=== PATIENT | female | born 1945 | race Caucasian/White ===

== ENCOUNTER → 2025-02-25 14:57 | Outpatient (BNVA) | payer MEDICARE, SELFPAY | PROVIDERS: Family Provider Nurse Practitioner; PCP Nurse Practitioner Family; Referring Provider Nurse Practitioner Family; Visit Provider Internal Medicine | DX: R07.9 Chest pain, unspecified (principal) | CPT/HCPCS: 93005; 99204 ==

== ENCOUNTER 2025-02-27 08:09 | Outpatient (CLI) | payer MEDICARE, SELFPAY ==
--- NOTE | 2025-02-27 08:30 | USCV_ITS ---
Ellen Castillo Age: 79 Gender: F : 1945 Exam Date: 02/27/2025 08:36 Ordering Phys: Chris Lundberg M.D ([email or web address]) Technologist: [place] [facility] [place]: cp sob BP: 124 / 73 HR: 67 Rhythm: Sinus Technical Quality: Adequate MEASUREMENTS (Male / Female) Normal Values 2D ECHO LV Diastolic Diameter PLAX 4.7 cm 4.2 - 5.9 / 3.9 - 5.3 cm IVS Diastolic Thickness 1.1 cm 0.6 - 1.0 / 0.6 - 0.9 cm IVS Systolic Thickness 1.4 cm LVPW Diastolic Thickness 1.4 cm 0.6 - 1.0 / 0.6 - 0.9 cm LVPW Systolic Thickness 1.7 cm LVOT Diameter 2.0 cm LV Ejection Fraction 2D Teich 65.5 % LV Ejection Fraction MOD 4C 50.5 % LV Ejection Fraction MOD 2C 64.2 % LV Ejection Fraction 2C AL 65.3 % LA Diameter 3.6 cm RA Systolic Volume 4C AL 29.6 ml RA Systolic Volume 4C MOD 28.9 ml Aorta at Sinotubular Diameter 3.0 cm IVC Diameter 1.5 cm M-MODE LA Ao Ratio MM 1.3 AV Cusp Separation MM 1.9 cm DOPPLER AV Peak Velocity 306.0 cm/s LVOT Peak Velocity 89.0 cm/s AV Area Cont Eq vti 2.7 cm squared AV Area Cont Eq pk 1.0 cm squared MV Peak Velocity 391.0 cm/s MV Area PHT 3.1 cm squared Mitral E to A Ratio 0.7 TV Peak Velocity 294.5 cm/s TR Peak Velocity 330.0 cm/s TR Peak Gradient 43.6 mmHg TV Peak E Velocity 81.0 cm/s PV Peak Velocity 98.0 cm/s FINDINGS Left Ventricle Left ventricular is normal in size. LV systolic function normal with EF of 55-60%. No regional wall motion abnormalities are seen. Grade 1 diastolic dysfunction. Right Ventricle Normal in size and function Right Atrium Normal in size Left Atrium Normal in size Mitral Valve Mild mitral annular calcification. Mild mitral regurgitation. Aortic Valve Aortic valve is thickened. Mild aortic regurgitation. No significant stenosis Tricuspid Valve Mild tricuspid regurgitation. RVSP is 40-45 mmHg. This is consistent with mild pulmonary hypertension Pulmonic Valve Not well visualized Pericardium Normal Aorta Normal in size IVC Appears to be normal CONCLUSIONS LV systolic function is normal with EF of 55-60% Grade 1 diastolic dysfunction Mild mitral regurgitation Mild aortic regurgittion Mild tricuspid regurgitation Mild pulmonary hypertension No comparison studies are available. Chris Lundberg MD (Electronically Signed) Final Date: 10 March 2025 15:49 S
== END 2025-02-27 08:10 | disposition home or self-care (01) ==
LOC: RAD 08:11
PROVIDERS: Family Provider Nurse Practitioner; PCP Nurse Practitioner Family; Visit Provider Internal Medicine
DX: R07.9 Chest pain, unspecified (principal); R06.02 Shortness of breath; I44.39 Other atrioventricular block; R93.1 Abnormal findings on diagnostic imaging of heart and coronary circulation; I34.81 Nonrheumatic mitral (valve) annulus calcification; I34.0 Nonrheumatic mitral (valve) insufficiency; I35.8 Other nonrheumatic aortic valve disorders; I35.1 Nonrheumatic aortic (valve) insufficiency; I07.1 Rheumatic tricuspid insufficiency
CPT/HCPCS: 93306

== ENCOUNTER → 2025-05-29 14:23 | Outpatient (BNVA) | payer MEDICARE, SELFPAY | PROVIDERS: Family Provider Nurse Practitioner; PCP Nurse Practitioner Family; Visit Provider Internal Medicine | DX: I44.39 Other atrioventricular block (principal); I10 Essential (primary) hypertension; Z95.0 Presence of cardiac pacemaker | CPT/HCPCS: 99214 ==